=== PATIENT | female | born 1995 | race African-American/Black ===

== ENCOUNTER 2018-11-23 03:31 | Emergency (ER) | payer MEDICAID, SELFPAY ==
[~2018-11-23] VITALS: Ht 170.2 cm; Wt 63.0 kg
[2018-11-23 06:25] LABS: EOSINOPHILS % 1.3 % (0.0-5.0); HEMOGLOBIN. 11.6 g/dL (12.0-16.0); LYMPHOCYTES % 30.6 % (20.0-50.0); MEAN CORPUSCULAR HEMOGLOBIN 24.4 pg (28.0-32.0); MEAN CORPUSCULAR VOLUME 75.8 fL (81.0-99.0); MEAN PLATELET VOLUME 7.1 fl (7.4-10.4); NEUTROPHILS % 60.1 % (40.0-76.0); PLATELET 302 x1000/uL (130-400); RED BLOOD CELL COUNT 4.75 mill/uL (4.2-5.4); RED CELL DISTRIBUTION WIDTH 15.2 % (11.6-14.6)
[2018-11-23 06:38] LABS: CHLORIDE 105 mEq/L (98-107)
[2018-11-23 06:44] LABS: ETHANOL BLOOD < 10 mg/dL
[2018-11-23] MEDS ORDERED: OLANZAPINE 10 MG/VIAL IM ONE (06:45)
[2018-11-23 08:02] LABS: HCG SCREEN NEGATIVE
[2018-11-23 10:32] LABS: CLARITY URINE CLEAR (CLEAR); COLOR URINE YELLOW (YELLOW); KETONES URINE TRACE (NEGATIVE); LEUKOCYTE ESTERASE URINE 1+ (NEGATIVE); NITRITE URINE NEGATIVE (NEGATIVE); OCCULT BLOOD URINE NEGATIVE (NEGATIVE); PROTEIN URINE NEGATIVE (NEGATIVE); SPECIFIC GRAVITY URINE 1.028 (1.005-1.030); UROBILINOGEN URINE 0.2 E.U./dL (0.2-1.0)
[2018-11-23 10:50] LABS: *BARBITURATES SCREEN URINE NEGATIVE (NEGATIVE); *BENZODIAZEPINES SCREEN URINE NEGATIVE (NEGATIVE)
[2018-11-23 10:51] LABS: METHADONE URINE SCREEN NEGATIVE (NEGATIVE); OPIATES URINE SCREEN NEGATIVE (NEGATIVE); PHENCYCLIDINE URINE SCREEN NEGATIVE (NEGATIVE)
[2018-11-23 11:02] LABS: *AMPHETAMINES SCREEN URINE PRESUMTIVE POSITIVE (NEGATIVE); *COCAINE SCREEN URINE PRESUMTIVE POSITIVE (NEGATIVE); CANNABINOID URINE SCREEN PRESUMTIVE POSITIVE (NEGATIVE)
[2018-11-23] MEDS ORDERED: CEFTRIAXONE SODIUM 1 G/VIAL IM ONE (14:15)
[2018-11-23 15:38] VITALS: BP 106/66
== END 2018-11-23 17:54 | disposition left against medical advice (07) ==
LOC: ER 03:48
DX: F15.10 Other stimulant abuse, uncomplicated (principal); F14.10 Cocaine abuse, uncomplicated; F91.1 Conduct disorder, childhood-onset type; F20.9 Schizophrenia, unspecified; E11.9 Type 2 diabetes mellitus without complications
CPT/HCPCS: 36415; 80053; 80305; 80307; 80329; 81003; 81025; 84703; 85025; 87186; 90471; 99283; J0696; J3490